=== PATIENT | male | born 1955 | race Caucasian/White ===

== ENCOUNTER 2025-10-21 05:51 | Day surgery (SDC) | payer MEDICARE, BC ==
[2025-10-21] VITALS (8 sets, daily range): BP systolic 90–112; BP diastolic 59–72; PULSE 43–57; RESP 11–16; TEMP 97.5; O2SAT 95–99
[~2025-10-21] VITALS: Ht 167.6 cm; Wt 68.0 kg
[~2025-10-21 05:51] MED LIST: CALCIUM PO; FERR-28 PO; HYLANDS LEG CRAMPS PO; LEVE100023 PO; LEVE500T PO; MAGN100T PO; MELA10CA11 PO; MULT-1085 PO; PREG300C20 PO; PSYL0.4C2 PO; simethicone 40mg/0.6ml oral drops 15ml PO ONE
[2025-10-21] MEDS: ringers solution, lacted 1,000 ML IV SCH (06:39)
[2025-10-21] MEDS ORDERED: fentaNYL/PF 50MCG/1 ML 2ML syringe ONE ×2 (07:12→07:31)
[2025-10-21] MEDS ORDERED: midazolam 1 mg/ML 2ml injection ONE (07:12)
[2025-10-21] MEDS ORDERED: propofol inj 20 ML IV ONE (07:17)
[2025-10-21] MEDS ORDERED: LIDOcaine 1%/PF 5ML 10 MG/ML VIAL ONE (07:17)
== END 2025-10-21 08:43 | disposition home or self-care (01) ==
LOC: PAS 05:51
PROVIDERS: ATTEND Internal Medicine Gastroenterology
DX: Z12.11 Encounter for screening for malignant neoplasm of colon (principal); K57.30 Diverticulosis of large intestine without perforation or abscess without bleeding; I10 Essential (primary) hypertension; E78.5 Hyperlipidemia, unspecified; K21.9 Gastro-esophageal reflux disease without esophagitis; M81.0 Age-related osteoporosis without current pathological fracture; M19.90 Unspecified osteoarthritis, unspecified site; Z86.0100 Personal history of colon polyps, unspecified; Z87.891 Personal history of nicotine dependence; Z79.899 Other long term (current) drug therapy; Z96.643 Presence of artificial hip joint, bilateral; Z98.890 Other specified postprocedural states; Z91.018 Allergy to other foods
CPT/HCPCS: A4615; G0105; J2250; J2704; J3010; J3490; J7120; Z7512; Z7610; 45378